=== PATIENT | male | born 1980 | race Caucasian/White ===

== ENCOUNTER 2017-12-22 15:32 | Observation (INO) | payer SELFPAY ==
[2017-12-22 18:03] LABS: #Monocytes 0.5 thou/uL (0.11-0.59); #Neutrophils 11.6 thou/uL (1.40-6.50); %Basophils 0.4 % (0.0-1.0); %Eosinophils 0.1 % (0.0-10.0); %Lymphocytes 7.4 % (21.0-51.0); %Neutrophils 88.2 % (42.0-75.0); Hemoglobin 14.9 g/dL (14.0-18.0); Mean Corpuscular HGB CONC 35.1 g/dL (32.0-36.0); Mean Corpuscular Hemoglobin 28.8 pg (27.0-31.0); Mean Platelet Volume 7.1 fL (7.4-10.4); Platelet Count 235 thou/uL (130-400); RBC Distribution Width 11.4 % (11.5-14.5); Red Blood Cell (RBC) Count 5.18 mill/uL (4.70-6.10); White Blood Cell (WBC) Count 13.2 thou/uL (4.8-10.8)
[2017-12-22] MEDS ORDERED: Piperacillin/Tazobactam 4.5 GM VIAL ONE (18:06)
[2017-12-22] MEDS ORDERED: Sodium Chloride 0.9% 100 ML ONE (18:07)
[2017-12-22 18:15] LABS: Anion Gap 15 mmol/L (10-20); BUN (Urea Nitrogen) 10 mg/dL (8.9-20.6); Calc. Creatinine Clearance 0 mL/min (70-130); Carbon Dioxide 19 mmol/L (22-29); Chloride 110 mmol/L (98-107); Estimated GFR-MDRD Greater than 90; Glucose 100 mg/dL (70-105); Potassium 3.9 mmol/L (3.5-5.1); Sodium 140 mmol/L (136-145)
--- NOTE | 2017-12-22 18:29 | RAD ---
FIFTH FINGER LEFT HAND: 12/22/17 Three views. HISTORY: Infection. FINDINGS/IMPRESSION: Soft tissue swelling is noted. There is no soft tissue gas or abnormal lucency. No fracture or dislocation. No evidence of lysis. There is a small focal lucency in the middle phalan x of the fifth finger. This is probably a benign lesion such as interosseous cyst or ganglion. Seques trum was not completely excluded but is felt less likely since there are no other signs that would in dicate osteomyelitis. Close followup is recommended. POS: ERIN
[2017-12-22] MEDS ORDERED: HYDROcodone/Acetaminophen 5/325 mg Tablet ONE (18:59)
[2017-12-22] MEDS ORDERED: Clindamycin/D5W 900 mg/50 ml Premix Bag ONE (19:09)
[2017-12-22] MEDS ORDERED: Ondansetron HCl/PF 4 MG/2 ML Vial IVP PRN (20:41)
[2017-12-22] MEDS ORDERED: HYDROcodone/Acetaminophen 5/325 mg Tablet PO PRN (20:41)
[2017-12-22] MEDS ORDERED: Ondansetron ODT 4 MG TAB SL PRN (20:41)
[2017-12-22] MEDS ORDERED: Vancomycin HCl 1.75 GM in Sodium Chloride 0.9% 500 ML IVPB SCH (20:45)
[2017-12-22 21:23] VITALS: BMI 33.3
[2017-12-22] MEDS ORDERED: Acetaminophen 325 MG TAB PO PRN (21:42)
[2017-12-22] MEDS: HYDROcodone/Acetaminophen 5/325 mg Tablet PO PRN (23:51)
[2017-12-23] MEDS ORDERED: Dextrose 5 %-0.45 % NaCl 1,000 ML IV SCH (00:01)
--- NOTE | 2017-12-23 00:13 | CON ---
DATE OF CONSULTATION: 12/22/2017 CHIEF COMPLAINT: Left hand pain. HISTORY OF PRESENT ILLNESS: Mr. Nicholas is a 37-year-old male. He is right hand dominant. Three d ays ago, he began having pain and swelling of his left fifth digit. He began having redness as well. This started over the proximal phalanx on the ulnar border of the hand. This progressed over the l ast several days. He had increased swelling. He performed a small incision over the finger and was able to express some purulent material. He expressed approximately 1 mL of purulence last night. He worsened again through the night and this morning, he presented to an urgent care. He was given a d ose of antibiotics. He was placed on oral antibiotics as well. He seemed to have worsening erythema throughout the day including the dorsum of his hand. He presented to the emergency department and w as given further intravenous antibiotics and has been admitted to my service. He is elevating the quispe nd. He is currently comfortable. He feels that he is improving now. He has less pain. Less erythe ma. He feels that his current antibiotics are working. PAST MEDICAL HISTORY: Negative. PAST SURGICAL HISTORY: Negative. SOCIAL HISTORY: The patient denies tobacco, alcohol, or drug use. He is an engineering student. ALLERGIES: No known drug allergies. REVIEW OF SYSTEMS: Positive for left hand symptoms as per HPI, otherwise negative 10-point review of systems. FAMILY MEDICAL HISTORY: Noncontributory. PHYSICAL EXAMINATION: VITAL SIGNS: Temperature is 99.7, pulse is 115, respiratory rate 20. GENERAL: He is alert and oriented, in no apparent distress. RESPIRATORY: Breathing comfortably. ABDOMEN: Soft, nontender, nondistended. MUSCULOSKELETAL: The patient's left fifth digit has swelling, especially dorsally and ulnar. He has ecchymosis and a small area of blistering. He has faint erythema over the dorsal hand and finger. He is able flex and extend the digit well. He has no tenderness over the flexor tendon sheath. He h as 2 second capillary refill and the fingers are warm and well perfused. IMAGES: X-rays show swelling of the hand. There is a small lucency at the middle phalanx, which cou ld represent a bone infarct. No acute findings other than soft tissue swelling. IMPRESSION: Left fifth digit and dorsal hand cellulitis with small abscess formation. PLAN: At this point, the patient has been given Zosyn and clindamycin. We will order vancomycin as well. He will continue intravenous antibiotics overnight. We will reassess him in the morning. I w ill keep him n.p.o. after midnight in case he does not seem to be improving. We could consider I&D o f the finger to remove any purulence or abscess collection. Hopefully, he improves without surgical intervention. We will follow him for this. He will elevate the hand. He has access to pain medicat ion.
[2017-12-23] MEDS: Piperacillin/Tazobactam 3.375 GM in Sodium Chloride 0.9% 100 ML IVPB SCH ×4 (00:48→18:44)
[2017-12-23] MEDS: Clindamycin/D5W 900 MG in Premix Bag 1 BAG IVPB SCH ×3 (03:15→19:58)
[2017-12-23] MEDS: HYDROcodone/Acetaminophen 5/325 mg Tablet PO PRN ×3 (06:21→19:57)
[2017-12-24] MEDS: Piperacillin/Tazobactam 3.375 GM in Sodium Chloride 0.9% 100 ML IVPB SCH ×3 (00:22→14:50)
[2017-12-24] MEDS: Clindamycin/D5W 900 MG in Premix Bag 1 BAG IVPB SCH ×2 (03:15→11:23)
[2017-12-24] MEDS ORDERED: Ketorolac Tromethamine 30 MG/ML VIAL ONE (12:25)
[2017-12-24] MEDS ORDERED: Lidocaine 1% PF 5 ML VIAL ONE (12:25)
[2017-12-24] MEDS ORDERED: PROPOFOL 200 MG/20 ML VIAL ONE (12:25)
[2017-12-24] MEDS ORDERED: Fentanyl 100 MCG/2 ML VIAL ONE ×2 (12:59→14:05)
[2017-12-24] MEDS ORDERED: Midazolam HCl 2 mg/2 ml Vial ONE (12:59)
[2017-12-24] MEDS ORDERED: Promethazine HCl 25 MG/ML VIAL IM PRN (14:00)
[2017-12-24] MEDS ORDERED: Promethazine HCl 25 MG/ML VIAL SLOW IVP PRN (14:00)
[2017-12-24] MEDS ORDERED: Ondansetron HCl/PF 4 MG/2 ML Vial IVP PRN (14:00)
--- NOTE | 2017-12-24 15:18 | OP ---
DATE OF SURGERY: 12/24/2017 PREOPERATIVE DIAGNOSIS: Left small finger dorsal abscess. POSTOPERATIVE DIAGNOSIS: Left small finger dorsal abscess. SURGICAL PROCEDURE: Incision and drainage of left small finger dorsal abscess. ANESTHESIA: General. SURGEON: Ayad Freeman M.D. TOURNIQUET TIME: Zero. SPECIMEN: None. SPECIMEN: Swab sent for Gram stain culture and sensitivity. IMPLANTS: None. OUTCOME: Successful drainage of subcutaneous abscess left small finger. INDICATIONS: The patient is a 37-year-old gentleman with acute onset of left small finger swelling, pain, and erythema that spread into the dorsal surface of his hand. He has been on IV antibiotics an d a swab from the emergency room from a small pustule was sent for Gram stain and culture and sensiti vity, which is now growing out methicillin-resistant Staph aureus. The patient is still having some drainage and at this time it is felt that he would benefit from a formal incision and drainage proced ure to try and speed his overall recovery. Informed consent has been obtained. I believe all questi ons have been answered. PROCEDURE IN DETAIL: After the induction of general anesthesia, a sterile prep and drape was perform ed in the left upper extremity. Next, the small finger was inspected at the level of the proximal ph alanx. A small pustule that was draining purulent material was identified. A scalpel was then used to further open this area for a total length of approximately 1 inch through the subcutaneous tissue. At this point, there was found to be a small abscess cavity that extended to the level of the proxi mal interphalangeal joint dorsally, but not into the joint and then headed proximally towards the met acarpophalangeal joint. This was one large subcutaneous abscess cavity. The material was swabbed an d sent for further Gram stain culture and sensitivity. Next, this was irrigated with a liter of norm al saline with antibiotic irrigant using bulb syringe. At the completion of this, it was packed w ith a gauze dressing and Audi wrap over dressing. The patient was then sent to recovery room for stab condition. There were no complications. He tolerated the procedure well.
[2017-12-24] MEDS ORDERED: Budesonide 0.25 MG/2 ML NEB ONE (17:50)
[2017-12-24] MEDS: Vancomycin HCl 1.25 GM in Sodium Chloride 0.9% 250 ML 250 ML IVPB SCH (21:13)
--- NOTE | 2017-12-25 00:09 | CON ---
DATE OF CONSULTATION: 12/24/2017 REASON FOR CONSULTATION: Finger abscess. HISTORY OF PRESENT ILLNESS: A 37-year-old patient who has no past medical history and developed an i nflammatory process in the left fifth finger which looked like a small red pimple , about 2 d ays before admission. He tried to squeeze it and there is a little bit of purulent exudate which cam e out of the place. He was given antibiotics and corticosteroids at a local urgent care and then it became worse. He was eventually admitted and had an operative debridement by Dr. Freeman on 018. The small pustule was draining purulent material identified. The scalpel was used to open up t his area for about an inch through the subcutaneous tissue. There is a small abscess cavity that ext ended to the level of the proximal interphalangeal joint, but did not penetrate the joint and went pr oximally towards the metacarpophalangeal joint. This was irrigated and packed. Currently, he is feeling better. He denies headaches, visual symptoms, sore throat, odynophagia, dys phagia, no cough or sputum production or chest pain, no abdominal pain or diarrhea. No genitourinary symptoms, no joint symptoms or skin disorder outside the area of involvement. No neurological sympt oms. PAST MEDICAL HISTORY: Negative. Never smoker, , 6 kids. ALLERGIES: None. CURRENT MEDICATIONS: Zosyn, clindamycin, got 1 dose of vancomycin. FAMILY HISTORY: Noncontributory. 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 PHYSICAL EXAMINATION: VITAL SIGNS: T-max 99.7, currently 98.5, blood pressure 130/86, pulse is 83, respirations 16, O2 sat 92-94%. GENERAL: He is in no distress. No lymphadenopathy. HEENT: Ocular movements conjugate. Sclerae white. Oral cavity normal. NECK: Supple, no jugular vein distention. LUNGS: Symmetric clear breath sounds. HEART: S1, S2, regular rate. No S3, S4, no murmurs. ABDOMEN: Soft, not distended or tender. No ascites. No bladder distention. EXTREMITIES: No joint inflammatory activity outside the area of involvement. The left hand is dress ed and the dressing was not removed.. NEUROLOGIC: Nonfocal. LABORATORY DATA: White cell count was 13.2, hemoglobin 14, platelets 235. Chemistry with normal fin dings except for chloride 110, carbon dioxide 19. MRSA was retrieved from the site sensitive to clin damycin, doxycycline, Bactrim, rifampin. ASSESSMENT AND DISCUSSION: Otherwise, healthy young man with an abscess left hand. No joint or bone involvement. No tenosynovitis. We will switch the patient to oral clindamycin for discharge planni ng and preparation for tomorrow. We will give him one more dose of vancomycin until tomorrow. He is going to stick around for wound care management tomorrow and teaching before he is discharged.
[2017-12-25] MEDS: Vancomycin HCl 1.25 GM in Sodium Chloride 0.9% 250 ML 250 ML IVPB SCH (09:09)
[2017-12-25 12:26] VITALS: BP 132/85; TEMP 97.8
== END 2017-12-25 13:29 | disposition home or self-care (01) ==
LOC: SCSER 15:32 → 2SW 18:29
PROVIDERS: ADMIT Orthopaedic Surgery; ATTEND Orthopaedic Surgery
PROC: 0J9K0ZZ Drainage of Left Hand Subcutaneous Tissue and Fascia, Open Approach (ICD-10-PCS; principal; 2017-12-24)
DX: L02.512 Cutaneous abscess of left hand (principal)
CPT/HCPCS: 36415; 80048; 83605; 85025; 87040; 87070; 87077; 87186; 87205; 96365; 96366; 96367; 96374; G0378; J1885; J2001; J2250; J2543; J2704; J3010; J3370; J3490; J7050; J7626; Q0162

== ENCOUNTER 2018-03-03 14:47 | Emergency (ER) | payer BC, SELFPAY ==
[2018-03-03] MEDS ORDERED: Lidocaine 1% 20 ML MDV ONE (15:09)
[2018-03-03] MEDS ORDERED: Adacel (T-DAP) 0.5 ML VIAL ONE (15:52)
== END 2018-03-03 16:00 | disposition home or self-care (01) ==
LOC: SCSER 14:47
DX: L02.415 Cutaneous abscess of right lower limb (principal)
CPT/HCPCS: 10060; 90715; J2001

== ENCOUNTER 2018-03-06 09:55 | Emergency (ER) | payer BC | END 2018-03-06 10:35 | disposition home or self-care (01) | LOC: SCSER 09:55 | DX: Z48.817 Encounter for surgical aftercare following surgery on the skin and subcutaneous tissue (principal); Z79.899 Other long term (current) drug therapy | CPT/HCPCS: 99282 ==